=== PATIENT | female | born 1975 | race Caucasian/White ===

== ENCOUNTER 2024-01-15 12:33 | Emergency (ER) | payer SELFPAY ==
[2024-01-15] VITALS (14 sets, daily range): BP systolic 101–163; BP diastolic 67–98; PULSE 65–84; RESP 16; TEMP 36.6; O2SAT 95–100; BMI 39.4
[2024-01-15 13:14] LABS: Basophils # 0.1 K/mm3 (0-0.2); Basophils % 0.7 % (0.1-2.0); Eosinophils # 0.2 K/mm3 (0.0-0.4); Eosinophils % 2.2 % (0.1-12.0); Hematocrit 39.8 % (37.0-47.0); Hemoglobin 13.2 g/dL (12.2-16.2); Lymphocytes % 26.2 % (10-50); Mean Corpuscular HGB Conc 33.1 g/dL (31.8-35.4); Mean Corpuscular Hemoglobin 29.9 pg (27.0-31.2); Mean Corpuscular Volume 90.3 fl (81-99); Mean Platelet Volume 9.5 fl (7.4-10.4); Monocytes # 0.3 K/mm3 (0.1-1.0); Monocytes % 3.6 % (1.7-9.3); Neutrophils # 5.1 K/mm3 (1.8-7.8); Neutrophils % 67.4 % (37.0-80.0); Platelet Count 260 K/mm3 (142-424); Red Blood Count 4.41 M/mm3 (4.20-5.40); White Blood Count 7.6 K/mm3 (4.8-10.8)
[2024-01-15 13:20] LABS: Alanine Aminotransferase 28 U/L (12-78); Albumin Level 4.2 g/dl (3.5-5.0); Albumin/Globulin Ratio 1.2 (1.1-1.8); Alkaline Phosphatase 100 U/L (38-126); Anion Gap 6.8 mEq/L (5-15); Aspartate Amino Transferase 25 U/L (14-36); Bilirubin,Total 0.5 mg/dl (0.2-1.3); Blood Urea Nitrogen 16 mg/dl (7-17); Calcium 9.1 mg/dl (8.4-10.2); Carbon Dioxide 30 mmol/L (22.0-30.0); Chloride 106 mmol/L (98-107); Creatinine Clearance Estimated 123 mL/min (50-200); Estimated Glomerular Filt Rate 66 ml/min (>60); GFR (African American) 80 ML/MIN (>60); Globulin 3.6 g/dL (1.3-3.2); Glucose 130 mg/dl (74-100); Lipase 139 U/L (23-300); Potassium 3.8 mmoL/L (3.5-5.1); Sodium 139 mmol/L (136-145); Total Protein,Serum 7.8 g/dl (6.3-8.2)
[2024-01-15] MEDS: ACETAMINOPHEN 1,000MG/100ML VIAL 1000 MG IV (13:24)
[2024-01-15] MEDS: KETOROLAC 30MG/ML VIAL 15 MG IV (13:24)
[2024-01-15] MEDS: LACTATED RINGERS 1000ML 1,000 ML 999 ML IV (13:24)
[2024-01-15] MEDS: ONDANSETRON 4MG/2ML VIAL 4 MG IV (13:24)
[2024-01-15 13:32] LABS: Microscopic, Urine URINE MICROSCOPIC (MICROSCOPIC)
[2024-01-15 13:41] LABS: Appearance,Urine CLEAR (Clear); Blood, Urine Negative (Negative); Color,Urine YELLOW (Yellow); Glucose,Urine (UA) Negative (Negative); Ketones,Urine Negative (Negative); Leukocyte Esterase,Urine TRACE (Negative); Nitrate,Urine Negative (Negative); PH,Urine 5.5 (5.0-8.5); Protein,Urine Negative (Negative); Specific Gravity, Urine >= 1.030 (1.005-1.030); Urobilinogen,Urine 0.2 EU/dl (0.2)
[2024-01-15 13:45] LABS: Bilirubin,Urine Negative (Negative)
--- NOTE | 2024-01-15 13:52 | ED_ITS ---
Discharge Plan Disposition Patient Disposition: Home, Self-Care Chief Complaint: Abdominal Pain Prescriptions Prescriptions: New atorvastatin 20 mg tablet 20 mg PO DAILY Qty: 30 3RF Referrals Follow up/Referrals: Provider,Referral, [Primary Care Provider] - See instructions Activity Restrictions/Add. Instructions Additional Instructions/Restrictions: See your family doctor regarding this visit to the emergency department. Your cholesterol level was high today, statin medication (anticholesterol) sent to the pharmacy. A1c 7.4. Contact your GI doctor and let them know you were seen as well. It may be worthwhile for you to get a colonoscopy. If you have any worsening of your condition or any other concerning signs or symptoms, return to the emergency department or your primary care doctor for further evaluation. Clinical Impressions Clinical Impression: Abdominal pain, left lower quadrant Instructions Patient Instructions: DI for Acute Abdominal Pain Discharge ED Provider: Sunday Covarrubias General Adult HPI <Aron Adams MD - Last Filed: 01/15/24 15:17> General Chief complaint: Abdominal Pain Stated complaint: nausea, abd pain, diarhea, sore throat Time Seen by Provider: 01/15/24 12:47 Mode of Arrival: Ambulatory Source of Information: Patient Limitations: No Limitations Description of Symptoms (Recalled from ER Triage Doc. by RN): pt states she has been having ongoing generalized abd for a few months. pt reports the pain worsened yesterday. pt states her pain is sharp, stabbing and an 8/10. pt reports she is nauseated and has gone back and forth between diarrhea and constipation today. History of Present Illness HPI narrative: Please note that above description of symptoms, in this electronic medical record under categorization of recalled from ER triage doctor by RN are reflective of an initial nursing assessment, however, is not reflective of my full history and physical exam that was personally taken and clarified. Consequentially, this preceding description of symptoms, which may include the patient's categorized chief complaint in the EMR, do not reflect my personal clinical impression, and the ultimate description of history of present illness and patient stated complaints should be deferred to this section of the note. Unless stated otherwise or congruent with this section of the note, additional signs, symptoms, or incongruence should be interpreted as inaccurate with my clinical impression. Related Data Previous Rx's Medication Instructions Recorded atorvastatin 20 mg tablet 20 mg PO DAILY #30 tabs 01/15/24 Allergies Allergy/AdvReac Type Severity Reaction Status Date / Time rizatriptan [From Maxalt] Allergy Mild Other Verified 01/15/24 12:47 peas Allergy Hives Verified 01/15/24 12:47 strawberry AdvReac Hives Verified 01/15/24 12:47 PFSH <Aron Adams MD - Last Filed: 01/15/24 15:17> [facility] Disclaimer: The information contained in this section may have been updated after the patient was seen, as this information can be updated by other users. Social History (Updated 01/15/24 @ 15:17 by Aron Adams MD) Smoking Status: Never smoker alcohol intake: never current occupational status: employed Travel in the last 8 weeks: None <Aron Adams MD - Last Filed: 01/15/24 15:17> ROS Obtained: Yes All systems reviewed & no additional complaints except as documented Physical Exam <Aron Adams MD - Last Filed: 01/15/24 15:17> General General appearance: alert and obese Head Head exam: atraumatic and normocephalic Eye Eye exam: Present normal appearance, PERRL and EOMI Neck Neck exam: Present normal inspection, full ROM and trachea midline Respiratory Respiratory exam: Absent respiratory distress, wheezes, stridor, accessory muscle use or prolonged expiratory phase Cardiovascular Cardiovascular exam: Present other (Pulses equal symmetric in upper and lower extremities) Abdominal Exam Abdominal exam: Present soft and tenderness; Absent distention or pulsatile mass Extremities Exam Extremities exam: Absent edema Neurological Exam Neurological exam: Present alert, oriented X3 and CN II-XII intact; Absent motor sensory deficit Skin Skin exam: Present warm and dry; Absent diaphoresis or erythema Medical Decision Making <Aron Adams MD - Last Filed: 01/15/24 15:17> Medical Records Medical records reviewed: Yes I reviewed the patient's medical records. Helder Inquiry Pt receiving controlled substance: No Helder was queried for this patient: No Vital Signs: 01/15/24 12:38 01/15/24 12:42 01/15/24 12:46 Temperature 97.8 F Temperature Source Oral Pulse Rate 82 84 Pulse Rate [Left] 79 Respiratory Rate 16 Blood Pressure 163/87 H 150/85 H Blood Pressure [Right Arm] 163/87 H Blood Pressure Mean [Right Arm] 112 Blood Pressure Source [Right Arm] Automatic Cuff Blood Pressure Position [Right Arm] Standing 02 Sat by Pulse Oximetry 96 98 97 Oxygen Delivery Method Room Air Room Air Room Air 01/15/24 13:14 01/15/24 13:29 01/15/24 13:46 Temperature 97.8 F Temperature Source Pulse Rate 71 76 77 Pulse Rate [Left] Respiratory Rate 16 Blood Pressure 102/80 L 145/98 H 129/81 Blood Pressure [Right Arm] Blood Pressure Mean [Right Arm] Blood Pressure Source [Right Arm] Blood Pressure Position [Right Arm] 02 Sat by Pulse Oximetry 96 99 Oxygen Delivery Method Room Air Room Air 01/15/24 14:00 01/15/24 14:16 01/15/24 14:31 Temperature Temperature Source Pulse Rate 73 69 67 Pulse Rate [Left] Respiratory Rate Blood Pressure 126/77 120/76 128/78 Blood Pressure [Right Arm] Blood Pressure Mean [Right Arm] Blood Pressure Source [Right Arm] Blood Pressure Position [Right Arm] 02 Sat by Pulse Oximetry 95 95 95 Oxygen Delivery Method 01/15/24 15:50 01/15/24 16:01 Temperature Temperature Source Pulse Rate 76 72 Pulse Rate [Left] Respiratory Rate Blood Pressure 124/83 131/90 Blood Pressure [Right Arm] Blood Pressure Mean [Right Arm] Blood Pressure Source [Right Arm] Blood Pressure Position [Right Arm] 02 Sat by Pulse Oximetry 100 100 Oxygen Delivery Method Room Air Lab Data Lab Results 01/15/24 12:45: WBC 7.6, RBC 4.41, Hgb 13.2, Hct 39.8, MCV 90.3, MCH 29.9, MCHC 33.1, RDW 15.0, Plt Count 260, MPV 9.5, Neut % (Auto) 67.4, Lymph % (Auto) 26.2, [place] % (Auto) 3.6, Eos % (Auto) 2.2, Baso % (Auto) 0.7, Neut # (Auto) 5.1, Lymph # (Auto) 2.0, [place] # (Auto) 0.3, Eos # (Auto) 0.2, Baso # (Auto) 0.1, ESR 48 H, Sodium 139, Potassium 3.8, Chloride 106, Carbon Dioxide 30, Anion Gap 6.8, BUN 16, Creatinine 0.90, Estimated Creat Clear 123, Estimated GFR 66, Est GFR ( Amer) 80, Glucose 130 H, Hemoglobin A1c 7.4 H, Calcium 9.1, Total Bilirubin 0.5, AST 25, ALT 28, Alkaline Phosphatase 100, C-Reactive Protein 32.1 H, Total Protein 7.8, Albumin 4.2, Globulin 3.6 H, Albumin/Globulin Ratio 1.2, T riglycerides 198 H, Cholesterol 255 H, LDL Cholesterol Direct 154.54 H, VLDL Cholesterol 40, HDL Cholesterol 44, Cholesterol/HDL Ratio 5.8 H, Lipase 139 01/15/24 13:28: Urine Color Yellow, Urine Appearance Clear, Urine pH 5.5, Ur Specific [place] >= 1.030, Urine Protein Negative, Urine Glucose (UA) Negative, Urine Ketones Negative, Urine Blood Negative, Urine Nitrate Negative, Urine Bilirubin Negative, Urine Urobilinogen 0.2, Ur Leukocyte Esterase Trace, Urine RBC None, Urine WBC 5-10, Ur Squamous Epith Cells 10-20, Amorphous Sediment Trace, Urine Bacteria Trace 01/15/24 12:45 01/15/24 12:45 Orders (Tests/Meds): ED MEDICATIONS Generic Name Dose Route Start Last Admin Trade Name Freq PRN Reason Stop Dose Admin Sodium Chloride 10 ml 01/15/24 12:50 Sodium Chloride 0.9% 10ml Flush Syringe IV 02/14/24 12:49 NEEDED PRN Maintain IV Site Sodium Chloride 10 ml 01/15/24 14:53 01/15/24 14:54 Sodium Chloride 0.9% 10ml Syr (Rad Only) IV 02/14/24 14:52 10 ml NEEDED PRN Administration Maintain IV Site Discontinued Medications Generic Name Dose Route Start Last Admin Trade Name Freq PRN Reason Stop Dose Admin Acetaminophen 1,000 mg 01/15/24 13:16 01/15/24 13:24 Acetaminophen 1,000mg/100ml Vial IV 01/15/24 13:17 1,000 mg ONCE ONE Administration Lactated Ringer's 1,000 mls @ 999 mls/hr 01/15/24 13:16 01/15/24 13:24 Lactated Ringer's 1000 Ml Bag IV 01/15/24 14:16 999 mls/hr .Q1H1M ONE Administration Iopamidol 75 ml 01/15/24 14:53 01/15/24 14:54 Iopamidol-370 (76%);100ml Bottle IV 01/15/24 14:54 75 ml ONCE ONE Administration Ketorolac Tromethamine 15 mg 01/15/24 13:16 01/15/24 13:24 Ketorolac 30mg/Ml Vial IV 01/15/24 13:17 15 mg ONCE ONE Administration Ondansetron HCl 4 mg 01/15/24 13:18 01/15/24 13:24 Ondansetron 4mg/2ml Vial IV 01/15/24 13:19 4 mg ONCE ONE Administration ORDERS Category Date Time Status CT abdomen pelvis w con Stat Cat Scan 01/15/24 14:29 Completed CRP [C-Reactive Protein] Stat Lab 01/15/24 12:45 Completed Complete Blood Count Auto Diff Stat Lab 01/15/24 12:45 Completed Comprehensive Metabolic Panel Stat Lab 01/15/24 12:45 Completed ESR [Erythrocyte Sedimentation Rate] Stat Lab 01/15/24 12:45 Completed Hemoglobin A1C Stat Lab 01/15/24 12:45 Completed Lipase Stat Lab 01/15/24 12:45 Completed Lipid Panel Stat Lab 01/15/24 12:45 Completed UA [Urinalysis and Microscopic] Stat Lab 01/15/24 13:28 Completed Medical Decision Narrative: 48-year-old female history of hypertension, diabetes, appendectomy, cholecystectomy presenting with abdominal pain. Patient states abdominal pain has been getting worse over the past month or so. Used to follow with a GI doc, has not had a colonoscopy in over a year. She has a strong family history of genetic colon Cancers in her father and sister. States that she intermittently has diarrhea, intermittently has constipation, no blood in her stool. She has been nauseated, vomiting, no blood in her vomit either. Abdominal pain is mild to moderate, left lower quadrant, does not radiate. No urinary symptoms, fevers, chills, night sweats, weight loss, easy bruising, or any other concerns. Has not noticed anything that makes pain better. History was obtained via conversation with patient. On arrival, patient hemodynamically stable, alert, [oriented x4, ][appropriate, ]GCS [15], moving all extremities spontaneously, pupils equal and reactive to light. Full physical exam performed and significant for very well-appearing woman who is in no acute distress. Obese. Abdomen is soft, nondistended, but tender in left lower quadrant. Differential includes diverticulitis, colitis, enteritis, malignancy, pancreatitis, perforation, IBS, IBD, among others. Patient was given Zofran, Toradol, acetaminophen, fluids for symptomatic management[ and correction of underlying abnormalities]. Workup independently interpreted and significant for no leukocytosis. Patient's ESR and CRP mildly elevated. Chemistry nonactionable. Patient's lipids are all elevated, statin to be sent to pharmacy. CT abdomen pelvis without obvious intra-abdominal pathology, but prior to final read, care handed off to oncoming physician. Environmental Management Specialist disclaimer Much of this encounter note is an electronic centrifugal station operator spoken language to printed text. Electronic centrifugal station operator of the spoken language may permit errors. Although I have reviewed the note, some errors may still exist. <Sunday Covarrubias MD - Last Filed: 01/15/24 17:16> Vital Signs: 01/15/24 12:38 01/15/24 12:42 01/15/24 12:46 Temperature 97.8 F Temperature Source Oral Pulse Rate 82 84 Pulse Rate [Left] 79 Respiratory Rate 16 Blood Pressure 163/87 H 150/85 H Blood Pressure [Right Arm] 163/87 H Blood Pressure Mean [Right Arm] 112 Blood Pressure Source [Right Arm] Automatic Cuff Blood Pressure Position [Right Arm] Standing 02 Sat by Pulse Oximetry 96 98 97 Oxygen Delivery Method Room Air Room Air Room Air 01/15/24 13:14 01/15/24 13:29 01/15/24 13:46 Temperature 97.8 F Temperature Source Pulse Rate 71 76 77 Pulse Rate [Left] Respiratory Rate 16 Blood Pressure 102/80 L 145/98 H 129/81 Blood Pressure [Right Arm] Blood Pressure Mean [Right Arm] Blood Pressure Source [Right Arm] Blood Pressure Position [Right Arm] 02 Sat by Pulse Oximetry 96 99 Oxygen Delivery Method Room Air Room Air 01/15/24 14:00 01/15/24 14:16 01/15/24 14:31 Temperature Temperature Source Pulse Rate 73 69 67 Pulse Rate [Left] Respiratory Rate Blood Pressure 126/77 120/76 128/78 Blood Pressure [Right Arm] Blood Pressure Mean [Right Arm] Blood Pressure Source [Right Arm] Blood Pressure Position [Right Arm] 02 Sat by Pulse Oximetry 95 95 95 Oxygen Delivery Method 01/15/24 15:50 01/15/24 16:01 Temperature Temperature Source Pulse Rate 76 72 Pulse Rate [Left] Respiratory Rate Blood Pressure 124/83 131/90 Blood Pressure [Right Arm] Blood Pressure Mean [Right Arm] Blood Pressure Source [Right Arm] Blood Pressure Position [Right Arm] 02 Sat by Pulse Oximetry 100 100 Oxygen Delivery Method Room Air Lab Data Lab Results 01/15/24 12:45: WBC 7.6, RBC 4.41, Hgb 13.2, Hct 39.8, MCV 90.3, MCH 29.9, MCHC 33.1, RDW 15.0, Plt Count 260, MPV 9.5, Neut % (Auto) 67.4, Lymph % (Auto) 26.2, [place] % (Auto) 3.6, Eos % (Auto) 2.2, Baso % (Auto) 0.7, Neut # (Auto) 5.1, Lymph # (Auto) 2.0, [place] # (Auto) 0.3, Eos # (Auto) 0.2, Baso # (Auto) 0.1, ESR 48 H, Sodium 139, Potassium 3.8, Chloride 106, Carbon Dioxide 30, Anion Gap 6.8, BUN 16, Creatinine 0.90, Estimated Creat Clear 123, Estimated GFR 66, Est GFR ( Amer) 80, Glucose 130 H, Hemoglobin A1c 7.4 H, Calcium 9.1, Total Bilirubin 0.5, AST 25, ALT 28, Alkaline Phosphatase 100, C-Reactive Protein 32.1 H, Total Protein 7.8, Albumin 4.2, Globulin 3.6 H, Albumin/Globulin Ratio 1.2, T riglycerides 198 H, Cholesterol 255 H, LDL Cholesterol Direct 154.54 H, VLDL Cholesterol 40, HDL Cholesterol 44, Cholesterol/HDL Ratio 5.8 H, Lipase 139 01/15/24 13:28: Urine Color Yellow, Urine Appearance Clear, Urine pH 5.5, Ur Specific [place] >= 1.030, Urine Protein Negative, Urine Glucose (UA) Negative, Urine Ketones Negative, Urine Blood Negative, Urine Nitrate Negative, Urine Bilirubin Negative, Urine Urobilinogen 0.2, Ur Leukocyte Esterase Trace, Urine RBC None, Urine WBC 5-10, Ur Squamous Epith Cells 10-20, Amorphous Sediment Trace, Urine Bacteria Trace Orders (Tests/Meds): ED MEDICATIONS Generic Name Dose Route Start Last Admin Trade Name Freq PRN Reason Stop Dose Admin Sodium Chloride 10 ml 01/15/24 12:50 Sodium Chloride 0.9% 10ml Flush Syringe IV 02/14/24 12:49 NEEDED PRN Maintain IV Site Sodium Chloride 10 ml 01/15/24 14:53 01/15/24 14:54 Sodium Chloride 0.9% 10ml Syr (Rad Only) IV 02/14/24 14:52 10 ml NEEDED PRN Administration Maintain IV Site Discontinued Medications Generic Name Dose Route Start Last Admin Trade Name Freq PRN Reason Stop Dose Admin Acetaminophen 1,000 mg 01/15/24 13:16 01/15/24 13:24 Acetaminophen 1,000mg/100ml Vial IV 01/15/24 13:17 1,000 mg ONCE ONE Administration Lactated Ringer's 1,000 mls @ 999 mls/hr 01/15/24 13:16 01/15/24 13:24 Lactated Ringer's 1000 Ml Bag IV 01/15/24 14:16 999 mls/hr .Q1H1M ONE Administration Iopamidol 75 ml 01/15/24 14:53 01/15/24 14:54 Iopamidol-370 (76%);100ml Bottle IV 01/15/24 14:54 75 ml ONCE ONE Administration Ketorolac Tromethamine 15 mg 01/15/24 13:16 01/15/24 13:24 Ketorolac 30mg/Ml Vial IV 01/15/24 13:17 15 mg ONCE ONE Administration Ondansetron HCl 4 mg 01/15/24 13:18 01/15/24 13:24 Ondansetron 4mg/2ml Vial IV 01/15/24 13:19 4 mg ONCE ONE Administration ORDERS Category Date Time Status CT abdomen pelvis w con Stat Cat Scan 01/15/24 14:29 Completed CRP [C-Reactive Protein] Stat Lab 01/15/24 12:45 Completed Complete Blood Count Auto Diff Stat Lab 01/15/24 12:45 Completed Comprehensive Metabolic Panel Stat Lab 01/15/24 12:45 Completed ESR [Erythrocyte Sedimentation Rate] Stat Lab 01/15/24 12:45 Completed Hemoglobin A1C Stat Lab 01/15/24 12:45 Completed Lipase Stat Lab 01/15/24 12:45 Completed Lipid Panel Stat Lab 01/15/24 12:45 Completed UA [Urinalysis and Microscopic] Stat Lab 01/15/24 13:28 Completed Medical Decision Narrative: 48-year-old female history of hypertension, diabetes, appendectomy, cholecystectomy presenting with abdominal pain. Patient states abdominal pain has been getting worse over the past month or so. Used to follow with a GI doc, has not had a colonoscopy in over a year. She has a strong family history of genetic colon Cancers in her father and sister. States that she intermittently has diarrhea, intermittently has constipation, no blood in her stool. She has been nauseated, vomiting, no blood in her vomit either. Abdominal pain is mild to moderate, left lower quadrant, does not radiate. No urinary symptoms, fevers, chills, night sweats, weight loss, easy bruising, or any other concerns. Has not noticed anything that makes pain better. History was obtained via conversation with patient. On arrival, patient hemodynamically stable, alert, [oriented x4, ][appropriate, ]GCS [15], moving all extremities spontaneously, pupils equal and reactive to light. Full physical exam performed and significant for very well-appearing woman who is in no acute distress. Obese. Abdomen is soft, nondistended, but tender in left lower quadrant. Differential includes diverticulitis, colitis, enteritis, malignancy, pancreatitis, perforation, IBS, IBD, among others. Patient was given Zofran, Toradol, acetaminophen, fluids for symptomatic management[ and correction of underlying abnormalities]. Workup independently interpreted and significant for no leukocytosis. Patient's ESR and CRP mildly elevated. Chemistry nonactionable. Patient's lipids are all elevated, statin to be sent to pharmacy. CT abdomen pelvis without obvious intra-abdominal pathology, but prior to final read, care handed off to oncoming physician. Sunday Covarrubias: Upon assumption of care patient was hemodynamically stable. Hematologic labs reviewed by me and are nonactionable in the emergency department. A1c 7.4. Urinalysis interpreted by me and not consistent with infection. CT imaging remarkable for decompressed distal colon with mild wall thickening, diverticulosis of the descending and sigmoid colon without acute diverticulitis. Upon repeat evaluation patient was resting comfortably in bed and is appropriate for outpatient management at this time. Environmental Management Specialist disclaimer Much of this encounter note is an electronic centrifugal station operator spoken language to printed text. Electronic centrifugal station operator of the spoken language may permit errors. Although I have reviewed the note, some errors may still exist. Critical Care <Aron Adams MD - Last Filed: 01/15/24 15:17> Critical Care Time Critical Care Time: No
[2024-01-15 14:04] LABS: Amorphous Sediment,Urine Trace /lpf; Bacteria,Urine Trace /lpf
[2024-01-15 14:09] LABS: Cholesterol 255 mg/dl (140-200); Triglycerides 198 mg/dl (30-150); VLDL Cholesterol 40 mg/dL (0-40)
[2024-01-15 14:10] LABS: Chol/HDL Ratio 5.8 (1-3.5); HDL Cholesterol 44 mg/dl (40-60)
[2024-01-15 14:15] LABS: C-Reactive Protein 32.1 mg/L (0-4)
[2024-01-15 14:20] LABS: Direct LDL Cholesterol 154.54 mg/dL (100-129)
--- NOTE | 2024-01-15 14:29 | CT_ITS ---
FINAL REPORT CLINICAL HISTORY: LLQ pain COMPARISON: None FINDINGS: CT OF THE ABDOMEN AND PELVIS WITH CONTRAST Axial CT images of the abdomen and pelvis were obtained after the administration of IV contrast. Coronal and sagittal reformatted images were also obtained and reviewed. This study was performed with techniques to keep radiation doses as low as reasonably achievable (ALARA). Individualized dose reduction techniques using automated exposure control or adjustment of mA and/or kV according to the patient's size were employed. Abdomen: Mild bibasilar atelectasis is present.. The heart is normal in size. There is fatty infiltration of the liver. No biliary ductal dilatation is seen. The gallbladder has been surgically resected. The spleen is unremarkable. No adrenal mass is present. The pancreas has an unremarkable appearance. The kidneys are normal, without evidence of mass or hydronephrosis. The aorta is normal in caliber. There is no free fluid or adenopathy. No mass or abnormal fluid collection is seen. Pelvis: The appendix is not well-visualized. The urinary bladder is unremarkable. There is descending and sigmoid diverticulosis without evidence of acute inflammatory change. The distal colon is decompressed but there may be mild wall thickening in the distal colon that may represent mild colitis. There is no evidence of mass or adenopathy. There is no evidence of bowel obstruction. IMPRESSION: Distal colon is decompressed, but there may be mild wall thickening in the distal colon that may represent a mild colitis. Fatty infiltration of the liver. Diverticulosis of the descending and sigmoid colon without evidence of acute diverticulitis. Reviewed, Interpreted and Dictated by Matthew Marie III, MD Transcribed by Erika Rogers Authenticated and . [facility]
--- NOTE | 2024-01-15 14:52 | PC.NURSE ---
PT RETURNED FROM CT
[2024-01-15] MEDS: SODIUM CHLORIDE 0.9% 10ML SYR (RAD ONLY) 10 ML IV (14:54)
[2024-01-15] MEDS: IOPAMIDOL-370 (76%);100ML BOTTLE 75 ML IV (14:54)
[2024-01-15 14:59] LABS: Erythrocyte Sedimentation Rate 48 mm/hr (0-20)
[2024-01-15 15:59] LABS: Hemoglobin A1C 7.4 % (4.0-6.0)
--- NOTE | 2024-01-15 16:06 | PC.NURSE ---
per radiology ct is being read at this time
--- NOTE | 2024-01-15 16:10 | PC.NURSE ---
rounded on pt no needs at this time
== END 2024-01-15 17:21 | disposition home or self-care (01) ==
PROVIDERS: Emergency Medicine; Emergency Provider Emergency Medicine
DX: R10.32 Left lower quadrant pain (principal); R19.7 Diarrhea, unspecified; R11.0 Nausea; E11.9 Type 2 diabetes mellitus without complications; I10 Essential (primary) hypertension
CPT/HCPCS: 74177; 80053; 80061; 81001; 83036; 83690; 85025; 85651; 86140; 96361; 96374; 96375; 99284; J0131; J1885; J2405; J7120; Q9967

== ENCOUNTER 2024-01-19 15:23 | Emergency (ER) | payer SELFPAY ==
[2024-01-19 15:25] VITALS: BP 146/84; PULSE 86; RESP 16; TEMP 36.6; O2SAT 97; BMI 34.3
[2024-01-19 15:45] VITALS: BP 146/84; PULSE 84; O2SAT 96
[2024-01-19 16:02] VITALS: BP 125/67; PULSE 81; O2SAT 96
--- NOTE | 2024-01-19 16:04 | XR_ITS ---
PROCEDURE INFORMATION: Exam: XR Left Knee Exam date and time: 01/19/2024 4:08 PM Age: 48 years old Clinical indication: Injury or trauma; Fall; Work related; Blunt trauma; Knee; Left; Injury date: 01/18/2024; Additional info: Fall left knee to hip pain TECHNIQUE: Imaging protocol: Radiologic exam of the left knee. Views: 3 views. COMPARISON: CR Femur L 01/19/2024 4:07 PM FINDINGS: Bones/joints: There is a nonacute deformity in the medial distal left femoral shaft. This could represent an old, healed fracture. Recommend comparisons with prior imaging if they exist. There is no periosteal reaction or matrix abnormality in this region. No acute left femur abnormality. No left knee effusion. Mild joint space narrowing of the medial compartment of the left knee but no significant osteoarthritic changes are appreciated. Soft tissues: No soft tissue mass. IMPRESSION: 1. No acute left knee abnormality 2. Probable old, healed distal left knee fracture. Please see discussion above.
--- NOTE | 2024-01-19 16:04 | XR_ITS ---
PROCEDURE INFORMATION: Exam: XR Left Hip Exam date and time: 01/19/2024 4:06 PM Age: 48 years old Clinical indication: Injury or trauma; Fall; Work related; Blunt trauma (contusions or hematomas); Left; Hip; Injury date: 01/18/2024; Additional info: Fall, L knee pain radiating to hip TECHNIQUE: Imaging protocol: Radiologic exam of the left hip. Views: 2 or 3 views hip with pelvis when performed. COMPARISON: CT ABDOMEN PELVIS W CON 01/15/2024 2:49 PM FINDINGS: Bones/joints: Unremarkable. No acute fracture. No dislocation. Soft tissues: Unremarkable. IMPRESSION: No acute findings.
--- NOTE | 2024-01-19 16:04 | XR_ITS ---
PROCEDURE INFORMATION: Exam: XR Left Femur Exam date and time: 01/19/2024 4:07 PM Age: 48 years old Clinical indication: Injury or trauma; Fall; Work related; Blunt trauma; Thigh or upper leg; Left; Injury date: 01/18/2024; Additional info: Fall left knee to hip pain TECHNIQUE: Imaging protocol: Radiologic exam of the left femur. Views: 2 views. COMPARISON: CR Hip L 01/19/2024 4:06 PM FINDINGS: Bones/joints: The left femur is intact. There is a nontraumatic distal left femur deformity which could represent an old healed distal femur fracture. There is no periosteal reaction or destructive bone changes. No comparison exams are available at this institution. No evidence of a left knee effusion. Soft tissues: Unremarkable. IMPRESSION: No acute left femur abnormality. There is a distal left femur chronic appearing deformity which could represent an old healed fracture.
--- NOTE | 2024-01-19 16:06 | HMH.EDGENADL ---
Discharge Plan Disposition Patient Disposition: Home, Self-Care Prescriptions Prescriptions: No Action atorvastatin 20 mg tablet 20 mg PO DAILY Qty: 30 3RF Referrals Follow up/Referrals: Provider,Referral, MD [Primary Care Provider] - See instructions Activity Restrictions/Add. Instructions Additional Instructions/Restrictions: Follow-up with your family doctor regarding this visit to the emergency department take Tylenol 1000 mg every 6 hours (4 times daily) and ibuprofen 400 mg every 6 hours (4 times daily) as needed with food and water to prevent GI upset and kidney damage. Follow-up with Dr. Bryant for further evaluation and possible MRI of the knee if you continue to have pain. You are able to bear weight as tolerated Clinical Impressions Clinical Impression: Acute pain of left knee Stand Alone Forms Stand Alone Forms: Work/School Release Discharge ED Provider: Aron Adams General Adult HPI General Chief complaint: Fall Stated complaint: AO 01/18/24 0830 left knee injury Time Seen by Provider: 01/19/24 15:56 Mode of Arrival: Ambulatory Source of Information: Patient Limitations: No Limitations Description of Symptoms (Recalled from ER Triage Doc. by RN): Patient states that she slipped in water yesterday while at work and fell. Complaint of left knee pain. States that when she puts pressure on it pain radiates up her thigh. History of Present Illness HPI narrative: Please note that above description of symptoms, in this electronic medical record under categorization of recalled from ER triage doctor by RN are reflective of an initial nursing assessment, however, is not reflective of my full history and physical exam that was personally taken and clarified. Consequentially, this preceding description of symptoms, which may include the patient's categorized chief complaint in the EMR, do not reflect my personal clinical impression, and the ultimate description of history of present illness and patient stated complaints should be deferred to this section of the note. Unless stated otherwise or congruent with this section of the note, additional signs, symptoms, or incongruence should be interpreted as inaccurate with my clinical impression. Related Data Previous Rx's Medication Instructions Recorded atorvastatin 20 mg tablet 20 mg PO DAILY #30 tabs 01/15/24 Allergies Allergy/AdvReac Type Severity Reaction Status Date / Time rizatriptan [From Maxalt] Allergy Mild Other Verified 01/15/24 12:47 peas Allergy Hives Verified 01/15/24 12:47 strawberry AdvReac Hives Verified 01/15/24 12:47 [facility] Disclaimer: The information contained in this section may have been updated after the patient was seen, as this information can be updated by other users. Social History (Updated 01/15/24 @ 15:17 by Aron Adams MD) Smoking Status: Never smoker alcohol intake: never current occupational status: employed Travel in the last 8 weeks: None ROS Obtained: Yes All systems reviewed & no additional complaints except as documented Physical Exam General General appearance: alert Head Head exam: atraumatic and normocephalic Eye Eye exam: Present normal appearance, PERRL and EOMI Neck Neck exam: Present normal inspection, full ROM and trachea midline Respiratory Respiratory exam: Absent respiratory distress, wheezes, stridor, accessory muscle use or prolonged expiratory phase Cardiovascular Cardiovascular exam: Present other (Pulses equal symmetric in upper and lower extremities) Abdominal Exam Abdominal exam: Present soft; Absent distention, tenderness or pulsatile mass Extremities Exam Extremities exam: Present tenderness and other (Left hip nontender on range of motion. Left knee structurally intact soft tissue exam. Maximal tenderness medial joint space. No evidence of joint effusion. Neurovascular intact distally); Absent edema Neurological Exam Neurological exam: Present alert, oriented X3 and CN II-XII intact; Absent motor sensory deficit Skin Skin exam: Present warm and dry; Absent diaphoresis or erythema Medical Decision Making Medical Records Medical records reviewed: Yes I reviewed the patient's medical records. Helder Inquiry Pt receiving controlled substance: No Helder was queried for this patient: No Vital Signs: 01/19/24 15:25 01/19/24 15:45 01/19/24 16:02 Temperature 97.8 F Temperature Source Oral Pulse Rate 84 81 Pulse Rate [Radial] 86 Respiratory Rate 16 Blood Pressure 146/84 H 125/67 Blood Pressure [Right Arm] 146/84 H Blood Pressure Mean [Right Arm] 104 Blood Pressure Source Blood Pressure Source [Right Arm] Automatic Cuff Blood Pressure Position Blood Pressure Position [Right Arm] Sitting 02 Sat by Pulse Oximetry 97 96 96 Oxygen Delivery Method Room Air 01/19/24 16:31 01/19/24 18:10 Temperature 97.9 F Temperature Source Oral Pulse Rate 79 76 Pulse Rate [Radial] Respiratory Rate 18 Blood Pressure 132/82 129/83 Blood Pressure [Right Arm] Blood Pressure Mean [Right Arm] Blood Pressure Source Automatic Cuff Blood Pressure Source [Right Arm] Blood Pressure Position Sitting Blood Pressure Position [Right Arm] 02 Sat by Pulse Oximetry 96 Oxygen Delivery Method Room Air Orders (Tests/Meds): ORDERS Category Date Time Status Femur XR left 2 views [XR femur LT 2V] Stat Exams 01/19/24 16:04 Completed Hip XR left minimum 2 views [XR hip LT 2-3V w/pelvis] Exams 01/19/24 16:04 Completed Stat Knee XR left 3 views [XR knee LT 3V] Stat Exams 01/19/24 16:04 Completed Medical Decision Narrative: 48-year-old female no relevant medical history presenting with fall. Patient states that she fell yesterday, 01/17 in the AM. Slipped on a puddle at work. Landed straight down on her knee. Has had pain in her knee since. Pain is mild in intensity at rest, moderate when she tries to bear weight. Able to bear weight, but pain increases. Starts in left knee, radiates up toward the lateral aspect of left hip. Has been taking Tylenol and Motrin. This helps modestly. No back pain, bowel or bladder dysfunction, lower extremity numbness, weakness, or tingling, or any other concerns. History was obtained via conversation with patient. On arrival, patient hemodynamically stable, alert, oriented x4, appropriate, GCS 15, moving all extremities spontaneously, pupils equal and reactive to light. Full physical exam performed and significant for structurally intact left lower extremity. Hip nontender on range of motion and palpation. Left knee also structurally intact, neurovascularly intact, but she does have tenderness overlying her medial aspect of left knee at the joint space. Provocative meniscus testing is tender as well. No deformity. Differential includes sprain, strain, fracture, dislocation, among others. X-rays to be obtained. On independent interpretation, these demonstrate no acute bony abnormality of the left lower extremity. See radiology read for further details. Because patient at baseline without signs or symptoms of clinical decompensation, deemed appropriate for discharge. Results were relayed to patient who voiced understanding and were agreeable to outpatient management and follow up. I discussed my clinical impression with patient and answered all questions. At this time, the evidence for any other entities in the differential is insufficient to warrant any further testing or ED observation. This was explained as well. Advisory was given that persistent or worsening symptoms require further evaluation. I confirmed the understanding of this discussion. Is recommended that she follow-up with family doctor and orthopedics for further management. Inspector Repairer disclaimer Much of this encounter note is an electronic bowling ball finisher spoken language to printed text. Electronic bowling ball finisher of the spoken language may permit errors. Although I have reviewed the note, some errors may still exist. Critical Care Critical Care Time Critical Care Time: No
[2024-01-19 16:31] VITALS: BP 132/82; PULSE 79; O2SAT 96
[2024-01-19 18:10] VITALS: BP 129/83; PULSE 76; RESP 18; TEMP 36.6; O2SAT 97
== END 2024-01-19 18:10 | disposition home or self-care (01) ==
PROVIDERS: Emergency Provider Emergency Medicine
DX: M25.562 Pain in left knee (principal); W01.10XA Fall on same level from slipping, tripping and stumbling with subsequent striking against unspecified object, initial encounter
CPT/HCPCS: 73502; 73552; 73562; 99283